=== PATIENT | female | born 1970 | race Caucasian/White ===

== ENCOUNTER 2025-05-16 05:17 | Inpatient (IN) | payer MEDICAID ==
[2025-05-10 11:42] LABS: MEAN PLATELET VOLUME 8.1 FL (7.4-10.4); PRE OP HEMATOCRIT 38.9 % (35.0-45.0); PRE OP HEMOGLOBIN 12.6 g/dL (12.0-16.0); PRE OP PLATELET COUNT 272 X10'3 (140-440); PRE OP WHITE BLOOD COUNT 7.4 10'3 (4.8-10.8); RED CELL DISTRIBUTION WIDTH 17.8 % (11.5-14.5)
--- NOTE | 2025-05-10 11:53 | ELECTROCARDIOGRAPH REPORT ---
[facility] Test Date: 2025-05-10 Test Time: 11:51:49 Pat Name: OMAR LOWERY Department: PRE/OP CARDIOLOGY [id number] Room: Gender: F [employer] Supervisor: emma : 1970 Requested By: EMILIE LORENZ Order Number: [id number] Reading MD: Dr. EDIE Richards Measurements Intervals [place] Rate: 68 P: 26 DC: 170 QRS: 37 QRSD: 106 T: 37 QT: 383 QTc: 408 Interpretive Statements Sinus rhythm Abnormal inferior Q waves Electronically Signed On 05-10-2025 14:44:[address] EDIE Richards Please click the below link to view image of tracing.
[2025-05-10 12:00] LABS: CREATININE 0.86 MG/DL (0.40-0.90); PRE OP ALT 23 U/L (30-65); PRE OP ANION GAP 8 (8-16); PRE OP AST 22 U/L (10-37); PRE OP BILIRUB, TOTAL 0.4 MG/DL (0.0-1.0); PRE OP GLUCOSE 115 MG/DL (70-104); PRE OP POTASSIUM 4.3 MMOL/L (3.4-5.1); PRE OP SODIUM 143 MMOL/L (135-145); TOTAL CARBON DIOXIDE 29.3 MMOL/L (24-32); eGFR 68 ML/MIN
[2025-05-16] VITALS (30 sets, daily range): BP systolic 107–177; BP diastolic 58–114; PULSE 55–96; RESP 8–18; TEMP 96.1–97.7; O2SAT 94–100
[~2025-05-16] VITALS: Ht 170.2 cm; Wt 120.2 kg
[~2025-05-16 05:17] MED LIST: AMIT25TA19 PO; CHOL200074 PO; DULO30CA52 PO; HYDR25TA5 PO; LISI40TA20 PO; MAGN100C6 PO; OMEP20CA16 PO; POTA99CA PO; ZINC50TA60 PO
[2025-05-16] MEDS ORDERED: MESSAGE TO NURSING PO ONE (05:30)
[2025-05-16] MEDS: VANCOMYCIN/H2O 1.5g/300mL PB 300 ML IV ONE (06:21)
[2025-05-16] MEDS: Cefazolin 3 GM/100ML NS IVPB 100 ML IV ONE (06:22)
[2025-05-16] MEDS: ringers solution, lacted 1,000 ML IV SCH ×2 (06:22→10:15)
[2025-05-16] MEDS ORDERED: BUPIVACAINE/MELOXICAM 14 ML VIAL IL ONE (06:38)
[2025-05-16] MEDS ORDERED: bisacodyl 10mg suppository rectal RC PRN (07:15)
[2025-05-16] MEDS ORDERED: PCA WASTE DOCUMENTATION 1 MG ML MC SCH (07:15)
[2025-05-16] MEDS ORDERED: ondansetron/PF 4mg/2ml inj IV PRN ×2 (07:15→10:15)
[2025-05-16] MEDS ORDERED: magnesium hydroxide 30ml (MOM) UD suspension PO PRN (07:15)
[2025-05-16] MEDS ORDERED: fentaNYL/PF 50MCG/1 ML 2ML syringe ONE (07:24)
[2025-05-16] MEDS ORDERED: MIDAZolam 1mg/ml 10ml vial ONE (07:24)
[2025-05-16] MEDS: duloxetine 30mg CAPSULE.DR PO SCH (08:00)
[2025-05-16] MEDS ORDERED: non-formulary drug (Potassium Citrate (Potassium) 1 CAP) PO SCH (08:00)
[2025-05-16] MEDS ORDERED: ZINC AMINO ACID CHELATE PO SCH (08:00)
[2025-05-16] MEDS ORDERED: MAGNESIUM GLYCINATE PO SCH (08:00)
[2025-05-16] MEDS: BUPIVACAINE/MELOXICAM 14 ML VIAL IL ONE (08:25)
[2025-05-16] MEDS ORDERED: propofol inj 20 ML IV ONE ×2 (09:04)
[2025-05-16] MEDS ORDERED: ROPIVAcaine 0.5% (5mg/ml) 30ml vial ONE (09:04)
--- NOTE | 2025-05-16 09:27 | OPERATIVE REPORT ---
Operative Report Operative Report Procedure: Computer-assisted, robotically-assisted, left total knee arthroplasty. Surgeon: Dr. Agusto oRdríguez [place] Member: Myriam Arrington PA-C Anesthesiologist: Dr. Stanley Anesthesia: Spinal anesthetic and regional blocks Indications: 55-year-old female who has chronic osteoarthritis of the left knee with severe pain and limitation of activities despite extensive non-operative management. This patient has had extensive conservative treatment of knee joint arthritis, including rest, external joint support, anti-inflammatory medications, physical therapy, and corticosteroid injection. Physical therapy has been provided, along with a home exercise program prior to making the decision to proceed with surgical treatment. This therapeutic intervention did not provide any substantial relief of symptoms or improvement in function. The patient has been utilizing a cane, set of crutches, or walker, for more than 3 months prior to deciding to proceed with surgery. These interventions have not provided sufficient relief of pain to allow improvement in function. The patient has utilized non-steroidal anti-inflammatory medications for relief of pain over an extended period of time (more than 2 months), and has not experienced sufficient improvement in symptoms. Despite these treatments, this patient has continued difficulties with pain and limited function. They are unable to walk long distances, do vigorous activities, sit or sleep comfortably. Total knee replacement is the next reasonable step in terms of treatment. Indications for property assistant surgeon: A second set of skilled hands with specific orthopedic knowledge of the surgical procedure and orthopedic surgical techniques was necessary to accomplish this operation successfully, and with the least amount of morbidity for the patient. This facilitated operative exposure, manipulation and handling of tissues, placement of any implants, and accomplishment of wound closure. Findings: There was indeed a very severely arthritic knee, with loss of cartilage, exposed bone, and marginal osteophytes. The medial compartment was particularly bad. A 6 degree varus deformity and 9 degree flexion contracture were measured preoperatively. Post operative alignment was 0 degree varus, and 1 degree flexion. Complications: None Estimated Blood Loss: 150 mL Implants: A Esmer Person[employer] CR total knee system was utilized with a size 7 left femoral component, a size E left tibial component with a smart stem, and a 32 mm patellar component. A 10 mm medial congruent left tibial insert was utilized. The [employer] robotically assisted total knee arthroplasty system and computer was utilized. Procedure: The risks, benefits, expected results, and possible complications of the planned procedure had been explained to the patient and informed consent obtained. The patient was taken to the operating room and underwent a spinal anesthetic. The patient was placed in the supine position on the operating table, and the left leg was prepped and draped in the usual fashion. A timeout was taken prior to surgery, confirming patient identification, operative side operative site, planned procedure, administration of pre-operative antibiotics, site marking, and presence of all necessary implants and instruments, x-rays and equipment. A standard anterior, slightly lateral approach was performed with a medial parap atellar arthrotomy, and a VMO split. Time was then spent removing excessive synovial tissue and exposing the medial and lateral gutters, as well as moving the anterior sections of the residual menisci. The patella was mobilized to be able to be retracted laterally. This gave exposure of the anterior aspect of the knee. Attention was then directed to the patella. An oscillating saw was utilized to make a flat cut in a freehand manner, removing approximately 9 mm of thickness. The patella was then sized and drilled for the appropriate size patella implant. Infrared arrays were then placed on the distal shaft of the femur anteriorly, and the proximal tibia medially. Utilizing the [employer] computer system, the hip, knee, and ankle were landmarked in usual fashion. The initial alignment measurements were then taken confirming the above listed deformity. Surgical planning was then carried out on the computer, confirming alignment of components, sizing, and gap balancing. Appropriate soft tissue releases were performed. The property assistant surgeon was instrumental in maintaining exposure and tissue management and protecting vital structures. The robot was then utilized to perform all distal femoral cuts. The femur was prepared in 4 degrees of flexion and neutral coronal alignment. The robot was then utilized to cut the proximal tibia in 5 degrees of flexion and neutral coronal alignment. The computer was then utilized to check longitudinal alignment and soft tissue balance, and this confirmed excellent alignment. Next the dynamic balancing block was utilized to check and adjust soft tissue balancing. A repeat cut of the femur was performed, removing 2 more millimeters of bone to obtain appropriate flexion and extension gap balancing. Finally, attention was directed to the proximal tibia. The implant was sized and properly rotated, the central drill, and the fin punch performed. Final check of alignment and balancing was then carried out, as well as final removal and cleaning up of soft tissue such as meniscal remnants and osteophytes. A tourniquet was inflated to 300 mmHg after exsanguination of the leg with an Esmarch. Cement was then mixed; 2 batches were utilized, mixed together, for the tibia, the femur and the patella. The cut surface of the tibia was thoroughly lavaged with the pulsating lavage and then dried. The tibia was impacted with the mallet, seating it quite nicely in its proper rotational alignment. Excess cement was removed from around the margins. The femoral cuts were cleaned with a pulsating lavage and then dried with the lap sponges, and the femur was impacted into position with a mallet. The patella was held firmly in place with a clamp. Excess cement was removed around the margins of the components as the cement cured. Pressure was held on the femoral component and tibia by placing a spacer and bringing the leg to full extension and applying axial and hyperextension force. Upon complete hardening of all cement, the knee was inspected and excess cement removed. We lavaged the knee to wash out any debris and checked to make sure we had no impinging cement. The trial spacer was replaced and overall alignment checked with computer, ensuring we had full extension of the knee, and appropriate medial and lateral soft tissue balance, as well as flexion and e xtension balance. The tourniquet was deflated and hemostasis obtained with electrocautery. The wound was irrigated thoroughly one more time and then dried with lap sponges. The final tibial spacer was impacted and locked into the locking mechanism without difficulty. After final irrigation and suction of excess fluid, the knee was infiltrated with Zynrelief or postoperative pain control. The tibial and femoral navigation pins and arrays were removed. The tourniquet was then deflated, tourniquet time was 15 minutes. The wound was then closed in layers including retinacular closure, subcutaneous tissue, and skin. A sterile dressing was applied and the patient was returned to the recovery room in satisfactory condition. In the recovery area the remote monitoring station was dispensed to the patient and family. Instructions were given for its usage and electric repair supervisor once the patient got home. We also confirmed the patient had installed the [employer] mobility software, and we ensured that the patient was enrolled in appropriate software platform from our end. Remote monitoring was initiated at the preoperative appointment and the devices used for remote monitoring implanted and dispensed today. AGUSTO RODRÍGUEZ MD May 16, 2025 09:27
[2025-05-16] MEDS ORDERED: fentaNYL/PF 50MCG/1 ML 2ML syringe IV PRN ×2 (10:15)
[2025-05-16] MEDS ORDERED: labetalol 20mg/4ml (5mg/ml) syringe IV PRN (10:15)
[2025-05-16] MEDS ORDERED: HYDROmorphone/PF 0.2 MG/ML SYRINGE IV PRN ×2 (10:15)
[2025-05-16] MEDS ORDERED: hydrALAZINE 20mg/ml inj. IV PRN (10:15)
[2025-05-16] MEDS: acetaminophen 1,000mg/100ml IV 100 ML IV PRN (12:27)
[2025-05-16] MEDS: oxyCODONE IR 5mg (immed. release) tablet PO PRN (13:50)
[2025-05-16] MEDS: potassium cl 20mEq in 1/2 NS 1,000 ML IV SCH (15:15)
[2025-05-16] MEDS: ceFAZolin/D5W- 1GM premix 50 ML IV SCH (16:12)
[2025-05-16] MEDS: vancomycin/NS 1 GM ADD-VANTAGE 250 ML IV SCH (20:23)
[2025-05-17 01:23] VITALS: BP 113/75; PULSE 130; RESP 16; TEMP 98.3; O2SAT 93
[2025-05-17 01:35] VITALS: O2SAT 96
[2025-05-17] MEDS: oxyCODONE IR 5mg (immed. release) tablet PO PRN (05:14)
[2025-05-17 05:27] LABS: MEAN PLATELET VOLUME 8.4 FL (7.4-10.4); RED CELL DISTRIBUTION WIDTH 17.8 % (11.5-14.5)
[2025-05-17 05:45] LABS: TOTAL CARBON DIOXIDE 29.1 MMOL/L (24-32)
[2025-05-17 06:00] VITALS: BP 136/71; PULSE 95; RESP 14; TEMP 97.3; O2SAT 95
--- NOTE | 2025-05-17 07:50 | DISCHARGE SUMMARY ---
Discharge Summary [facility] ~ Discharge Summary *Problems/Diagnosis: (1) S/P total knee arthroplasty Status: Acute Admission Diagnosis: osteoarthritis Discharge Diagnosis\Comment: see above Operations\Procedures see above Consultants: none Complications: none Condition on DC: Stable Discharge Summary: Patient was admitted on day of surgery and had an uneventful overnight stay. Patient is stable for discharge home today. Total Time Spent on D/C: Up to 30 Minutes Medications Home Meds: Home Medications Active Reported Vitamin D3 (Cholecalciferol (Vitamin D3)) 50 Mcg (2000 Unit) Capsule 1 Cap PO DAILY 30 Days Magnesium Glycinate 100 Mg Magnesium Capsule 2 Cap PO DAILY Potassium (Potassium Citrate) 99 Mg Capsule 1 Cap PO DAILY Zinc (Zinc Amino Acid Chelate) 50 Mg Tablet 1 Tab PO DAILY Amitriptyline Hcl (Amitriptyline HCl) 25 Mg Tablet 1 Tab PO HS Omeprazole 20 Mg Capsule.dr 1 Cap PO DAILY Duloxetine HCl 30 Mg Capsule.dr 1 Cap PO DAILY Hydrochlorothiazide 25 Mg Tab 1 Tab PO DAILY Lisinopril* (Lisinopril) 40 Mg Tablet 1 Tab PO DAILY Supervising Physician Supervising Physician: Dr. Agusto Rodríguez Problem Qualifiers (1) S/P total knee arthroplasty: Qualified Codes: Z96.652 - Presence of left artificial knee joint CUONG KWONG May 17, 2025 07:50
[2025-05-17] MEDS: cholecalciferol (vitamin D3) 1,000 unit (25mcg) tablet PO SCH (09:57)
[2025-05-17] MEDS: pantoprazole 40mg Tablet.DR PO SCH (09:59)
[2025-05-17 10:00] VITALS: BP 130/64; PULSE 94; RESP 18; TEMP 98.1; O2SAT 100
[2025-05-17 10:02] VITALS: RESP 18
== END 2025-05-17 13:41 | disposition home or self-care (01) | DRG 326 ==
LOC: PAS IN 05:17 → ORTHO 4S 12:54
PROVIDERS: ADMIT Orthopaedic Surgery; ATTEND Orthopaedic Surgery
PROC: 8E0YXBZ Computer Assisted Procedure of Lower Extremity (ICD-10-PCS; 2025-05-16)
PROC: 8E0Y0CZ Robotic Assisted Procedure of Lower Extremity, Open Approach (ICD-10-PCS; 2025-05-16)
PROC: 3E0T3BZ Introduction of Anesthetic Agent into Peripheral Nerves and Plexi, Percutaneous Approach (ICD-10-PCS; 2025-05-16)
PROC: 0SRD0J9 Replacement of Left Knee Joint with Synthetic Substitute, Cemented, Open Approach (ICD-10-PCS; principal; 2025-05-16 07:21)
DX: M17.12 Unilateral primary osteoarthritis, left knee (principal); E11.9 Type 2 diabetes mellitus without complications; I10 Essential (primary) hypertension; G47.39 Other sleep apnea; K21.9 Gastro-esophageal reflux disease without esophagitis; F32.A Depression, unspecified; F41.9 Anxiety disorder, unspecified
CPT/HCPCS: 36415; 80051; 80053; 82948; 85025; 87081; 93005; 97161; 97530; A4215; A4615; A6253; A6449; A7000; C1713; C1776; C9088; G0378; J0131; J0690; J1171; J2250; J2704; J2795; J3010; J3373; J3375; J3480; J7120